=== PATIENT | male | born 1990 | race Caucasian/White ===

== ENCOUNTER 2018-10-25 20:08 | Emergency (ER) | payer BC ==
[2018-10-25] MEDS: IBUPROFEN 800 MG TAB PO (20:33)
[2018-10-25] MEDS ORDERED: LIDOCAINE 1%/EPI (MDV) 50 ML INJ INJ (21:00)
[2018-10-25] MEDS: LIDOCAINE 1%/EPI 30 ML INJ INJ (21:09)
== END 2018-10-25 23:00 | disposition home or self-care (01) ==
LOC: E/R 20:08
DX: S01.01XA Laceration without foreign body of scalp, initial encounter (principal); S80.02XA Contusion of left knee, initial encounter; S09.90XA Unspecified injury of head, initial encounter; M25.462 Effusion, left knee; F17.210 Nicotine dependence, cigarettes, uncomplicated; V43.52XA Car driver injured in collision with other type car in traffic accident, initial encounter
CPT/HCPCS: 12002; 73562; 99283-25

== ENCOUNTER 2018-11-04 13:23 | Emergency (ER) | payer BC | END 2018-11-04 14:31 | disposition home or self-care (01) | LOC: E/R 14:31 | DX: Z48.02 Encounter for removal of sutures (principal) | CPT/HCPCS: 99281 ==